=== PATIENT | male | born 1985 | race Caucasian/White ===

== ENCOUNTER 2019-09-10 19:41 | Emergency (ER) | payer OTHER ==
[~2019-09-10] VITALS: Ht 180.3 cm; Wt 73.5 kg
[~2019-09-10 19:41] MED LIST: ACETAMINOPHEN-1 EAC1 PO; FLEXERIL PO; HYDROCODONE-AP1 EAC6 PO; IBUPROFEN 800800 MG PO; PERCOCET 5-3251 EACH PO; TOBRAMYCIN SULFA5 M1 OP
[2019-09-10] MEDS ORDERED: PERCOCET PO (20:54)
[2019-09-10] MEDS ORDERED: MELOXICAM7.5 MG PO (20:54)
[2019-09-10 21:07] VITALS: BP 119/77
== END 2019-09-10 21:07 | disposition home or self-care (01) ==
LOC: M.ERS 19:41
DX: S22.31XA Fracture of one rib, right side, initial encounter for closed fracture (principal); F17.210 Nicotine dependence, cigarettes, uncomplicated; X50.9XXA Other and unspecified overexertion or strenuous movements or postures, initial encounter; Y93.89 Activity, other specified; Y92.89 Other specified places as the place of occurrence of the external cause; Y99.8 Other external cause status